=== PATIENT | female | born 1945 | race Caucasian/White ===

== ENCOUNTER 2017-10-15 13:46 | Emergency (ER) | payer MEDICARE, SELFPAY ==
[~2017-10-15] VITALS: Ht 167.6 cm; Wt 147.9 kg
[~2017-10-15 13:46] MED LIST: ALBU90OI6 INH; ALLO100 PO; AMLO10 PO; ASPI81EC PO; ATEN100 PO; AZIT500 PO; Augmentin 875-1 EACH PO; BENZ100A PO; BUME2 PO; CARV25 PO; CEFP200 PO; CHOL10002 PO; CLOP75 PO; CRUTCH USE; Colace100 MG PO; DIPASPER PO; DULERA 200 MCG/13 GM INH; FELO5CR PO; FERR325 PO; FISH1000 PO; GLIP10 PO; IBUP600 PO; INSULANPEN SC; LIDO5TP TOP; LISI20 PO; LOSA50 PO; LOSARTAN POTAS100 MG PO; Norco 5-325 Ta1 EACH PO; OMEP20ER PO; OXYACE5T PO; Omeprazole20 M1 PO; PARI1 PO; PIOG15 PO; PRAV20 PO; PRAV40 PO; PROM25 PO; TRAM50 PO; Ultram50 MG PO
[2017-10-15 14:52] LABS: BASOPHILS ABSOLUTE AUTO 0.06 K/mm3 (0.00-0.23); BASOPHILS PERCENT AUTO 1 % (0-2); EOSINOPHILS ABSOLUTE AUTO 0.32 K/mm3 (0.00-0.68); EOSINOPHILS PERCENT AUTO 4 % (0-6); Hematocrit 37.2 % (33.0-51.0); Hemoglobin 11.8 g/dL (11.5-16.0); IMMATURE GRAN ABSOLUTE AUTO 0.02 K/mm3 (0.00-0.10); IMMATURE GRAN PERCENT AUTO 0 % (0-1); LYMPHOCYTES ABSOLUTE AUTO 1.63 K/mm3 (0.84-5.20); LYMPHOCYTES PERCENT AUTO 20 % (21-46); MONOCYTES ABSOLUTE AUTO 0.57 K/mm3 (0.16-1.47); MONOCYTES PERCENT AUTO 7 % (4-13); Mean Corpuscular HGB 29.1 pg (26.0-34.0); Mean Corpuscular HGB Conc 31.7 g/dL (31.5-36.5); Mean Corpuscular Volume 92 fL (80-100); Mean Platelet Volume 9.4 fL (9.1-12.4); NEUTROPHILS ABSOLUTE AUTO 5.64 K/mm3 (1.96-9.15); NEUTROPHILS PERCENT AUTO 69 % (41-73); Platelet Count 297 K/mm3 (150-400); RDW Coefficient Variation 13.2 % (11.7-14.2); RDW Standard Deviation 44.2 fL (35.1-46.3); Red Blood Cell Count 4.05 M/mm3 (3.80-5.20); White Blood Cell Count 8.24 K/mm3 (4.00-11.30)
[2017-10-15 15:23] LABS: Troponin I <0.015 ng/mL (0.000-0.040)
[2017-10-15 15:26] LABS: Alanine Aminotransfer (ALT/SGP 22 U/L (12-78); Albumin, Blood 3.6 g/dL (3.4-5.0); Albumin/Globulin Ratio 0.9 (0.8-1.8); Alk Phos 80 U/L (50-136); Anion Gap 9 mmol/L (6-16); Aspartate Aminotrans (AST/SGOT 14 U/L (12-37); Bilirubin, Total 0.4 mg/dL (0.1-1.0); Blood Urea Nitrogen 31 mg/dL (8-24); Bun/Creatinine Ratio 23.5 (12.0-20.0); CO2, Blood 25 mmol/L (21-32); Calcium, Blood 9.1 mg/dL (8.5-10.1); Chloride, Blood 106 mmol/L (98-108); Creatinine, Blood 1.32 mg/dL (0.40-1.00); Glomerular Filtration Rate 42 (60-); Glucose, Blood 217 mg/dL (70-99); Potassium, Blood 4.1 mmol/L (3.5-5.5); Sodium, Blood 140 mmol/L (136-145); Total Protein, Blood 7.6 g/dL (6.4-8.2)
[2017-10-15] MEDS ORDERED: INSULANPEN SC (17:12)
[2017-10-15] MEDS ORDERED: CLOP75 PO (17:12)
[2017-10-15 17:13] LABS: U Amphetamine Screen Not Detected; U Barbituate Screen Not Detected; U Benzodiazapine Screen Not Detected; U Buprenorphine Screen Not Detected; U Cannabinoids Screen Not Detected; U Cocaine Screen Not Detected; U Methadone Screen Not Detected; U Methamphetamine Screen Not Detected; U Opiates Screen Not Detected; U Oxycodone Screen Not Detected; U Phencyclidine Screen Not Detected; U Propoxyphene Screen Not Detected
[2017-10-15] MEDS ORDERED: AMLO10 PO (17:13)
[2017-10-15] MEDS ORDERED: BUME2 PO (17:13)
[2017-10-15] MEDS ORDERED: PRAV20 PO (17:14)
[2017-10-15] MEDS ORDERED: Omeprazole20 M1 (17:14)
[2017-10-15] MEDS ORDERED: DOCU100 PO (17:15)
[2017-10-15] MEDS ORDERED: Carvedilol25 MG PO (17:15)
[2017-10-15] MEDS ORDERED: LOSA50 PO (17:15)
[2017-10-15] MEDS ORDERED: GLIP10 PO (17:16)
[2017-10-15] MEDS ORDERED: CHOL10002 (17:17)
[2017-10-15] MEDS ORDERED: FISH OIL 1,2001 EACH PO (17:17)
[2017-10-15] MEDS ORDERED: DIPH50 PO (17:17)
[2017-10-15] MEDS ORDERED: ACET500 (17:18)
[2017-10-15] MEDS ORDERED: Aspirin EC81 MG PO (19:51)
== END 2017-10-15 20:13 | disposition home or self-care (01) ==
LOC: ER 13:46
PROVIDERS: Emergency Medicine
DX: G45.9 Transient cerebral ischemic attack, unspecified (principal); E11.9 Type 2 diabetes mellitus without complications; I10 Essential (primary) hypertension; E66.01 Morbid (severe) obesity due to excess calories; Z79.899 Other long term (current) drug therapy; Z79.4 Long term (current) use of insulin; Z68.43 Body mass index [BMI] 50.0-59.9, adult
CPT/HCPCS: 36415; 51701; 70450; 71045; 80053; 84443; 84484; 85025; 93005; 93010; 93880; 99284

== ENCOUNTER 2018-12-11 19:04 | Emergency (ER) | payer MEDICARE, OTHER ==
[~2018-12-11] VITALS: Ht 167.6 cm; Wt 136.1 kg
[~2018-12-11 19:04] MED LIST changes: +ACET500; +Aspirin EC81 MG PO; +CHOL10002; +Carvedilol25 MG PO; +DIPH50 PO; +DOCU100 PO; +FISH OIL 1,2001 EACH PO
[2018-12-11 20:07] LABS: BASOPHILS ABSOLUTE AUTO 0.08 K/mm3 (0.00-0.23); BASOPHILS PERCENT AUTO 1 % (0-2); EOSINOPHILS ABSOLUTE AUTO 0.46 K/mm3 (0.00-0.68); EOSINOPHILS PERCENT AUTO 5 % (0-6); Hematocrit 38.9 % (33.0-51.0); Hemoglobin 12.5 g/dL (11.5-16.0); IMMATURE GRAN ABSOLUTE AUTO 0.04 K/mm3 (0.00-0.10); IMMATURE GRAN PERCENT AUTO 0 % (0-1); LYMPHOCYTES PERCENT AUTO 16 % (21-46); MONOCYTES ABSOLUTE AUTO 0.77 K/mm3 (0.16-1.47); MONOCYTES PERCENT AUTO 8 % (4-13); Mean Corpuscular HGB Conc 32.1 g/dL (31.5-36.5); Mean Corpuscular Volume 90 fL (80-100); Mean Platelet Volume 9.6 fL (9.1-12.4); NEUTROPHILS ABSOLUTE AUTO 6.42 K/mm3 (1.96-9.15); NEUTROPHILS PERCENT AUTO 69 % (41-73); Platelet Count 322 K/mm3 (150-400); RDW Coefficient Variation 13.6 % (11.7-14.2); Red Blood Cell Count 4.31 M/mm3 (3.80-5.20); White Blood Cell Count 9.27 K/mm3 (4.00-11.30)
[2018-12-11 20:25] LABS: Alanine Aminotransfer (ALT/SGP 26 U/L (12-78); Albumin, Blood 3.9 g/dL (3.4-5.0); Alk Phos 106 U/L (50-136); Anion Gap 9 mmol/L (6-16); Aspartate Aminotrans (AST/SGOT 25 U/L (12-37); Bilirubin, Total 0.5 mg/dL (0.1-1.0); Blood Urea Nitrogen 25 mg/dL (8-24); Bun/Creatinine Ratio 18.1 (12.0-20.0); CO2, Blood 28 mmol/L (21-32); Calcium, Blood 9.5 mg/dL (8.5-10.1); Chloride, Blood 97 mmol/L (98-108); Creatinine, Blood 1.38 mg/dL (0.40-1.00); Glomerular Filtration Rate 40 (60-); Glucose, Blood 180 mg/dL (70-99); Potassium, Blood 4.1 mmol/L (3.5-5.5); Sodium, Blood 134 mmol/L (136-145); Total Protein, Blood 7.9 g/dL (6.4-8.2); Troponin I <0.015 ng/mL (0.000-0.040)
[2018-12-11] MEDS ORDERED: GLIP10 PO (21:56)
[2018-12-11] MEDS ORDERED: Prednisone20 MG PO (22:23)
[2018-12-11] MEDS ORDERED: BENZ100A PO (22:23)
== END 2018-12-11 23:14 | disposition home or self-care (01) ==
LOC: ER 19:04
PROVIDERS: Physician Assistant
DX: J40 Bronchitis, not specified as acute or chronic (principal); E66.2 Morbid (severe) obesity with alveolar hypoventilation; Z68.42 Body mass index [BMI] 45.0-49.9, adult; Z79.899 Other long term (current) drug therapy; Z79.4 Long term (current) use of insulin; Z79.82 Long term (current) use of aspirin; E11.9 Type 2 diabetes mellitus without complications; I10 Essential (primary) hypertension; Z86.73 Personal history of transient ischemic attack (TIA), and cerebral infarction without residual deficits
CPT/HCPCS: 36415; 71046; 80053; 83880; 84484; 85025; 93005; 93010; 94640; 99284-25; J7512

== ENCOUNTER → 2020-02-14 | Outpatient (CLI) | payer MEDICARE, OTHER ==
[~2020-02-14] MED LIST changes: +ALLOPURINOL100 M1 PO; +AMLODIPINE BESY10 MG PO; +BASAGLAR K100 UNIT/1 SC; +Bumetanide2 MG PO; +CARV6.25 PO; +GLUCOTROL10 MG PO; +HUMALOG KW100 UNIT/1 SC; +PRED20 PO; +Prednisone20 MG PO; +Tessalon Perle100 MG PO; +VISBIOME PROBIOTIC PO
[2020-02-14 14:53] LABS: Appearance, Urine Hazy (Clear); Bilirubin, Urine Neg (Neg); Blood, Urine Neg (Neg); Color, Urine Yellow (P-Yellow); Glucose Qualitative, Urine Neg (Neg); Ketones, Urine Neg (Neg); Leukocyte Esterase, Urine 1+ (Neg); Nitrite, Urine Neg (Neg); Protein, Urine 1+ (Neg); Specific Gravity, Urine 1.015 (1.003-1.022); Urobilinogen, Urine NORM (Normal)
[2020-02-14 15:04] LABS: Bacteria Mod /hpf; Red Blood Cells, Urine 0-2 /hpf (0-2); Squamous Epithelial Cells Many /hpf (Few)
[2020-02-14 15:08] LABS: Yeast/Fungi Urine Few /hpf
== END | disposition home or self-care (01) ==
LOC: LAB 09:01 → LAB SHORT 09:01
PROVIDERS: Nurse Practitioner Family
DX: R05 Cough (principal); R06.00 Dyspnea, unspecified; R68.83 Chills (without fever)
CPT/HCPCS: 81001; 87086

== ENCOUNTER 2021-07-05 02:03 | Inpatient (IN) | payer MEDICARE ==
[~2021-07-05] VITALS: Ht 172.7 cm; Wt 133.5 kg
[2021-07-05 04:13] LABS: BASOPHILS ABSOLUTE AUTO 0.08 K/mm3 (0.00-0.23); BASOPHILS PERCENT AUTO 1 % (0-2); EOSINOPHILS ABSOLUTE AUTO 0.28 K/mm3 (0.00-0.68); EOSINOPHILS PERCENT AUTO 2 % (0-6); Hematocrit 38.1 % (33.0-51.0); Hemoglobin 12.4 g/dL (11.5-16.0); IMMATURE GRAN ABSOLUTE AUTO 0.04 K/mm3 (0.00-0.10); IMMATURE GRAN PERCENT AUTO 0 % (0-1); LYMPHOCYTES ABSOLUTE AUTO 1.68 K/mm3 (0.84-5.20); LYMPHOCYTES PERCENT AUTO 13 % (21-46); MONOCYTES ABSOLUTE AUTO 0.65 K/mm3 (0.16-1.47); MONOCYTES PERCENT AUTO 5 % (4-13); Mean Corpuscular HGB Conc 32.5 g/dL (31.5-36.5); Mean Corpuscular Volume 92 fL (80-100); Mean Platelet Volume 9.5 fL (9.1-12.4); NEUTROPHILS ABSOLUTE AUTO 9.96 K/mm3 (1.96-9.15); NEUTROPHILS PERCENT AUTO 79 % (41-73); Platelet Count 335 K/mm3 (150-400); RDW Coefficient Variation 13.9 % (11.7-14.2); RDW Standard Deviation 47.3 fL (35.1-46.3); Red Blood Cell Count 4.14 M/mm3 (3.80-5.20); White Blood Cell Count 12.69 K/mm3 (4.00-11.30)
[2021-07-05 04:35] LABS: Albumin, Blood 3.6 g/dL (3.4-5.0); Albumin/Globulin Ratio 0.9 (0.8-1.8); Bilirubin, Total 0.4 mg/dL (0.1-1.0); Bun/Creatinine Ratio 19.6 (12.0-20.0); Calcium, Blood 8.4 mg/dL (8.5-10.1); Creatinine, Blood 1.38 mg/dL (0.40-1.00); Potassium, Blood 3.8 mmol/L (3.5-5.5); Total Protein, Blood 7.6 g/dL (6.4-8.2); Troponin I 0.029 ng/mL (0.000-0.040)
[2021-07-05 07:50] LABS: Influenza A, PCR NEGATIVE (NEGATIVE); Influenza B, PCR NEGATIVE (NEGATIVE); Resp Syncytial Virus, PCR NEGATIVE (NEGATIVE); SARS-Cov-2 (COVID-19) PCR, MMC NEGATIVE (NEGATIVE)
--- NOTE | 2021-07-05 10:30 | NUR ---
PT ARRIVED TO UNIT VIA GURNEY, WAS ABLE TO TRANSFER SELF TO BED WITH USE OF CANE WITHOUT ASSISTANCE, VSS. PT WAS ABLE TO PROVIDE ADMIT INFORMATION REGARDING MEDICATIONS AND DOSAGES. PT AND PT'S DAUGHTER WERE ORIENTED TO ROOM, QUESTIONS ANSWERED TO SATISFACTION. PT DENIED PAIN/DISCOMFORT, REPOSITIONED SELF IN BED. PT WAS ABLE TO AMBULATE TO BATHROOM WITH STANDBY ASSIST FOR MANAGEMENT OF OXYGEN TUBING. PT'S DAUGHTER WAS INFORMED OF HOPSITAL VISITOR POLICY AND THAT SHE WAS WELCOME TO STAY DURING THE PT'S ADMIT AND THEN COULD RETURN DURING VISITING HOURS STARTING AT 2PM. PT'S DAUGHTER STATED SHE NEEDED TO "TALK TO SOMEONE IN CHARGE TO GIVE HER AN EXCEPTION." THIS RN COMMUNICATED THAT SHE COULD SPEAK WITH THE CHARGE NURSE CONSTANCE, AND SUBSEQUENTLY THE ADVANCED MANUFACTURING CONSULTANT WALDO TERRY, BOTH SPOKE WITH THE PATIENT AND HER DAUGHTER AT BEDSIDE.
--- NOTE | 2021-07-05 11:00 | NUR ---
Patient is alert and oriented at this time. Patients daughter states she is the post acute care registered nurse and reciting the [place] disabl[place] allowing her to stay with patient. At this time daughter allowed to stay.
[2021-07-05] MEDS ORDERED: BASAGLAR K100 UNIT/1 SC (13:51)
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
--- NOTE | 2021-07-05 18:41 | NUR ---
SHIFT SUMMARY NO ACUTE EVENTS SINCE ARRIVAL TO UNIT, VSS. PT UP TO BATHROOM WITH CANE, TOLERATED WELL AND ABLE TO VOID. PT CHANGED TO CLEAR LIQUID DIET PER DR. KURTZ WHO WAS AT BEDSIDE SEVERAL TIMES THIS SHIFT, PT TOLERATED WELL. PT HAS DENIED NAUSEA SINCE ARRIVAL TO UNIT. PT COMPLAINED OF 2/10 PAIN IN R. SIDE OF ABDOMEN, MEDICATED PER EMAR. PER DR. KURTZ PLAN IS FOR HYDRASCAN TOMORROW MORNING. PT ON ROOM AIR AFTER TRIAL OFF 2 L NASAL CANNULA, O2 SATURATION MAINTING >95% ON ROOM AIR.
[2021-07-06 05:03] LABS: BASOPHILS ABSOLUTE AUTO 0.05 K/mm3 (0.00-0.23); BASOPHILS PERCENT AUTO 0 % (0-2); EOSINOPHILS ABSOLUTE AUTO 0.05 K/mm3 (0.00-0.68); EOSINOPHILS PERCENT AUTO 0 % (0-6); Hematocrit 35.4 % (33.0-51.0); Hemoglobin 11.3 g/dL (11.5-16.0); IMMATURE GRAN ABSOLUTE AUTO 0.08 K/mm3 (0.00-0.10); IMMATURE GRAN PERCENT AUTO 1 % (0-1); LYMPHOCYTES ABSOLUTE AUTO 1.42 K/mm3 (0.84-5.20); LYMPHOCYTES PERCENT AUTO 9 % (21-46); MONOCYTES ABSOLUTE AUTO 1.15 K/mm3 (0.16-1.47); MONOCYTES PERCENT AUTO 7 % (4-13); Mean Corpuscular HGB Conc 31.9 g/dL (31.5-36.5); Mean Corpuscular Volume 94 fL (80-100); Mean Platelet Volume 9.3 fL (9.1-12.4); NEUTROPHILS ABSOLUTE AUTO 13.52 K/mm3 (1.96-9.15); NEUTROPHILS PERCENT AUTO 83 % (41-73); Platelet Count 253 K/mm3 (150-400); RDW Coefficient Variation 13.9 % (11.7-14.2); RDW Standard Deviation 47.9 fL (35.1-46.3); Red Blood Cell Count 3.77 M/mm3 (3.80-5.20); White Blood Cell Count 16.27 K/mm3 (4.00-11.30)
--- NOTE | 2021-07-06 05:32 | NUR ---
SHIFT SUMMARY NO ACUTE CHANGES OVERNIGHT. PT REPORTS MINIMAL ABD PAIN, 2/10 PAIN LEVEL ON RIGHT QUADRANT REGION. PT TOLERATING CLEAR LIQ DIET LAST NIGHT, NPO AFTER MIDNIGHT. DENIES NAUSEA AND VOMITING. BT PRESENT. AMBULATING IN BATHROOM WITH CANE, SBA WITH DAUGHTER HER GARDEN CENTER MANAGER IN ROOM. PAIN MANAGED WITH COURTNEY 5MG. NORCO STOPPED BEFORE 2AM FOR SCHEDULED HIDA SCAN THIS MORNING. PT AOX4. PLEASANT. VSS. CALL LIGHT WITHIN REACH. WILL PROVIDE REPORT TO ONCOMING NURSE.
[2021-07-06 05:55] LABS: Albumin/Globulin Ratio 0.9 (0.8-1.8); Bilirubin, Total 0.7 mg/dL (0.1-1.0); Bun/Creatinine Ratio 16.5 (12.0-20.0); Calcium, Blood 7.9 mg/dL (8.5-10.1); Creatinine, Blood 1.39 mg/dL (0.40-1.00); Globulin, Blood 3.3 g/dL (2.2-4.0); Potassium, Blood 3.8 mmol/L (3.5-5.5); Total Protein, Blood 6.3 g/dL (6.4-8.2)
--- NOTE | 2021-07-06 15:40 | NUR ---
07/06/21 1540 Jamee Bingham SMALL SKIN TEAR NOTED ON LEFT ARM NEAR BLOOD PRESSURE CUFF POST OPERATIVELY.
--- NOTE | 2021-07-06 17:49 | NUR ---
PATIENT CURRENTLY RESTING WITH EYES CLOSED, AWAKENS EASILY TO VERBAL STIMULI. PATIENT RETURNED FROM PACU AT 1645 TODAY. LAP SITES X 5 TO ABDOMEN. CICI DRAIN TO RLQ WITH SEROSANG DRAINAGE NOTED. NO SIGNS OR SYMPTOMS ACUTE DISTRESS NOTED. CALL LIGHT AND WATER IN EASY REACH. ABLE TO MAKE NEEDS AND WANTS KNOWN. PATIENTS SON IS TO BRING HER CPAP IN FOR HER TONIGHT. DAUGHTER IS AT BEDSIDE. PATIENT HAS NO COMPLAINTS OF PAIN/NAUSEA. BOWEL SOUNDS HYPOACTIVE. WILL MONITOR.
--- NOTE | 2021-07-07 05:00 | NUR ---
SUMMARY PT HAD NO ISSUES. PT DENIED ANY DISCOMFORT. PT PT ABD DRESSING C/D/I. PT HAD DIFFICULTY MAINTAINING SPO2 ON CPAP W/ BLEED IN. PT WAS PLACED ON NC @ 5 LPM WHILE SLEEPING. PT RESPONDED WELL AND MAINTAINED SPO2 >92%. PT VOIDED IN BATHROOM DURING THE NIGHT. PT HAS BEEN SLEEPING WELL W/OUT COMPLAINT. PT CURRENTLY SLEEPING AND IN NO DISTRESS. CALL LIGHT IN REACH.
--- NOTE | 2021-07-07 12:35 | NUR ---
Advance Directive education attempted. I inquire of patient as to her level of interest in discussing medical decision making, appointing a health care insurance follow up representative, adjusting her code status or filling out an ACP instrument. Patient declined having any interest in these types of conversations at this time but did receive an Advance Directive booklet from me which she states that she will read when she feels better. I will remain available to answer questions regarding the ACP.
--- NOTE | 2021-07-07 17:38 | NUR ---
PATIENT CURRENTLY SITTIN EOB EATING DINNER. NO SIGNS OR SYMPTOMS ACUTE DISTRESS NOTED. CALL LIGHT AND WATER IN EASY REACH, ABLE TO MAKE NEEDS AND WANTS KNOWN. DAUGHTER AT BEDSIDE AND HELPS PATIENT TO AND FROM THE BATHROOM. PATIENT USES WALKER. PATIENT EDUCATED ON USE OF IS EVERY HOUR WHILE AWAKE. MEDICATIONS CHANGES MADE BY DR TRAYLOR. PATIENT MEDICATED FOR RLQ PAIN TODAY PER ORDERS SEE EMAR. O2 WEANED DOWN TO 2L PER NC TODAY. PATIENT DOES NOT WEAR 02 AT HOME. COUGH NOTED THAT IS PRODUCTIVE. MD AWARE. WILL CONTINUE TO MONITOR.
--- NOTE | 2021-07-07 22:12 | NUR ---
2049 HS CBG WAS OBTAINED WITH 419, NO COVERAGE ORDERED FOR HS. CALLED DR. MEYER, NOTIFIED THAT PT HAS BEEN TAKING 40UNITS OF LONG ACTING INSULIN AT HOME IN THE MORNING. AND LSS SHORT ACTING BEFORE MEALS. DR. MEYER ORDERED 20UNITS LONG ACTING X1 TO BE GIVEN NOW AND RESUME PT'S HOME MED OF 40UNITS OF LONG ACTING IN THE MORNING AND CONTINUE SLIDING SCALE ON EMR. PT NOTIFIED, SON ON BEDSIDE. AGREED ON THIS PLAN. WILL CONTINUE TO MONITOR PT. PT PROVIDED DIABETIC DIET EDUCATION. PT HAS BEEN RECEPTIVE. CALL LIGHT WITHIN REACH.
[2021-07-08 05:24] LABS: BASOPHILS ABSOLUTE AUTO 0.02 K/mm3 (0.00-0.23); BASOPHILS PERCENT AUTO 0 % (0-2); EOSINOPHILS ABSOLUTE AUTO 0.01 K/mm3 (0.00-0.68); EOSINOPHILS PERCENT AUTO 0 % (0-6); Hematocrit 34.5 % (33.0-51.0); Hemoglobin 10.7 g/dL (11.5-16.0); IMMATURE GRAN ABSOLUTE AUTO 0.17 K/mm3 (0.00-0.10); IMMATURE GRAN PERCENT AUTO 2 % (0-1); LYMPHOCYTES ABSOLUTE AUTO 0.92 K/mm3 (0.84-5.20); LYMPHOCYTES PERCENT AUTO 8 % (21-46); MONOCYTES ABSOLUTE AUTO 0.71 K/mm3 (0.16-1.47); MONOCYTES PERCENT AUTO 6 % (4-13); Mean Corpuscular HGB 29.4 pg (26.0-34.0); Mean Corpuscular Volume 95 fL (80-100); Mean Platelet Volume 9.7 fL (9.1-12.4); NEUTROPHILS ABSOLUTE AUTO 9.74 K/mm3 (1.96-9.15); NEUTROPHILS PERCENT AUTO 84 % (41-73); Platelet Count 244 K/mm3 (150-400); RDW Coefficient Variation 13.8 % (11.7-14.2); RDW Standard Deviation 48.5 fL (35.1-46.3); Red Blood Cell Count 3.64 M/mm3 (3.80-5.20); White Blood Cell Count 11.57 K/mm3 (4.00-11.30)
--- NOTE | 2021-07-08 05:56 | NUR ---
SHIFT SUMMARY POD2 LAP LOUISE WITH 5 ABD LAP SITE REMAIN CDI OVERNIGHT. PT REPORTS MOD PAIN, PAIN MANAGED WITH TYLENOL AND OXY. PT AMBULATES WITH FWW TO BRP. VOIDING ADEQUATELY, SON AT BEDSIDE PROVIDING ASSISTANCE. VSS. PT WEARS CPAP AT NIGHT AT HOME BUT PREFERS TO USE 2L N/C OVERNIGHT BECAUSE CPAP MACHINE NOT PROVIDING ADEQUATE OXYGENATION AT SLEEP. PT REMAIN TO HAVE COUGH, NON PRODUCTIVE. ANTICIPATING CHEST XRAY TODAY. VSS. DENIES CHEST PAIN AND SOB. TOLERATING PO INTAKE DENIES NAUSEA AND VOMITING. BT PRESENT. PASSING FLATUS. IV ABX GIVEN. SALINE LOCKED. CBG AT 419, HS. CALLED DR. MEYER, UPDATED INSULIN ORDERS, SEE PREVIOUS NOTE AND EMR. CALL LIGHT WITHIN REACH. WILL PROVIDE REPORT TO ONCOMING NURSE.
--- NOTE | 2021-07-08 06:20 | NUR ---
[place] FROM [facility] CALLED, PT TO BE PICKED UP IN ABOUT 15 MINS FOR CHEST XRAY.
[2021-07-08 06:26] LABS: Albumin, Blood 2.3 g/dL (3.4-5.0); Anion Gap 11 mmol/L (6-16); Blood Urea Nitrogen 44 mg/dL (8-24); Bun/Creatinine Ratio 25.1 (12.0-20.0); CO2, Blood 25 mmol/L (21-32); Calcium, Blood 7.4 mg/dL (8.5-10.1); Chloride, Blood 99 mmol/L (98-108); Creatinine, Blood 1.75 mg/dL (0.40-1.00); Glomerular Filtration Rate 28 (60-); Glucose, Blood 308 mg/dL (70-99); Phosphorus, Blood 2.7 mg/dL (2.5-4.9); Potassium, Blood 4.3 mmol/L (3.5-5.5); Sodium, Blood 135 mmol/L (136-145)
[2021-07-09 05:18] LABS: Calcium, Blood 7.7 mg/dL (8.5-10.1); Creatinine, Blood 1.92 mg/dL (0.40-1.00)
--- NOTE | 2021-07-09 05:43 | NUR ---
ALERT AND ORIENTED X'S 4. DENIES PAIN OR DISCOMFORT. 02@1.5L VIA N/C, RESPIRATIONS EVEN AND UNLABORED, CONTINUOUS PULSE OX IN PLACE. PRODUCTIVE COUGH, CLEAR SPUTUM NOTED. STERI STRIPS TO ABDOMINAL LAP SITES INTACT, CELINA. CICI DRAINED 40ML OF SANGUINOUS FLUID, DRESSING INTACT. SAFETY MAINTAINED, CALL HERMOSILLO IN REACH.
[2021-07-09 06:36] LABS: BASOPHILS ABSOLUTE AUTO 0.07 K/mm3 (0.00-0.23); BASOPHILS PERCENT AUTO 1 % (0-2); EOSINOPHILS ABSOLUTE AUTO 0.37 K/mm3 (0.00-0.68); EOSINOPHILS PERCENT AUTO 4 % (0-6); Hematocrit 33.9 % (33.0-51.0); Hemoglobin 10.7 g/dL (11.5-16.0); IMMATURE GRAN ABSOLUTE AUTO 0.34 K/mm3 (0.00-0.10); IMMATURE GRAN PERCENT AUTO 4 % (0-1); LYMPHOCYTES ABSOLUTE AUTO 2.17 K/mm3 (0.84-5.20); LYMPHOCYTES PERCENT AUTO 22 % (21-46); MONOCYTES ABSOLUTE AUTO 0.85 K/mm3 (0.16-1.47); MONOCYTES PERCENT AUTO 9 % (4-13); Mean Corpuscular HGB 29.6 pg (26.0-34.0); Mean Corpuscular HGB Conc 31.6 g/dL (31.5-36.5); Mean Corpuscular Volume 94 fL (80-100); Mean Platelet Volume 9.3 fL (9.1-12.4); NEUTROPHILS ABSOLUTE AUTO 5.96 K/mm3 (1.96-9.15); NEUTROPHILS PERCENT AUTO 61 % (41-73); Platelet Count 256 K/mm3 (150-400); RDW Coefficient Variation 14.1 % (11.7-14.2); RDW Standard Deviation 48.1 fL (35.1-46.3); Red Blood Cell Count 3.62 M/mm3 (3.80-5.20); White Blood Cell Count 9.76 K/mm3 (4.00-11.30)
[2021-07-09 08:15] LABS: Appearance, Urine Clear (Clear); Bilirubin, Urine Neg (Neg); Blood, Urine Neg (Neg); Color, Urine Yellow (P-Yellow); Glucose Qualitative, Urine 3+ (Neg); Ketones, Urine Neg (Neg); Leukocyte Esterase, Urine Neg (Neg); Nitrite, Urine Neg (Neg); Protein, Urine 1+ (Neg); Urobilinogen, Urine NORM (Normal)
--- NOTE | 2021-07-09 18:14 | NUR ---
PATIENT CURRENTLY UP IN CHAIR EATING HER MEAL. NO SIGNS OR SYMPTOMS ACUTE DISTRESS NOTED. CALL LIGHT AND WATER IN EASY REACH. ABLE TO MAKE NEEDS AND WANTS KNOWN. CONSULT FOR PLACED TODAY, NOTIFIED HIM OF CONSULT. DR KURTZ SAW PATIENT THIS MORNING AND DC'D ANTIBIOTICS. DRESSING CHANGED TO CICI DRAIN SITE. CICI WITH SEROSANG DRAINAGE NOTED. PATIENT UP TO BATHROOM WITH WALKER, SBA ONLY. PATIENT HAS BEEN ON ROOM AIR ALL DAY AND HAS BEEN UP IN CHAIR FOR ALL MEALS. CURRENTLY WITH IVF RUNNING. PATIENT ENCOURAGED TO COUGH AND DEEP BREATH AND USE IS EVERY HOUR WHILE AWAKE. WILL MONITOR.
--- NOTE | 2021-07-10 04:43 | NUR ---
SHIFT SUMMARY PT IS POD#3 FROM LAP LOUISE WITH DR. KURTZ. A&0 X4. [place] ROBB AT BEDSIDE DURING THE EVENING. PT CAN AMBULATE INDEPENDENTLY WITH SBA FOR SAFETY TO BR. 5 LAP SITES SECURED WITH STERISTRIPS. INCISIONS ARE C/D/I, NO EVIDENCE OF DRAINAGE OR REDNESS. CICI IN PLACE TO RLQ, DRAINING SCANT SEROSANGUINOUS FLUID. PT VOIDED TWICE DURING THE SHIFT. ROOM AIR. HX OF [place], DECLINED TO WEAR CPAP DURING SLEEP. MAINTAINED OXYGEN SATURATIONS OF 91-92% DURING THE NIGHT MONITORED VIA CONTINUOUS PULSE OX. 5 VSS, NO ACUTE CHANGES.
[2021-07-10 05:15] LABS: Hematocrit 35.2 % (33.0-51.0); Hemoglobin 10.9 g/dL (11.5-16.0)
[2021-07-10 05:40] LABS: Albumin, Blood 2.5 g/dL (3.4-5.0); Anion Gap 6 mmol/L (6-16); Blood Urea Nitrogen 39 mg/dL (8-24); CO2, Blood 28 mmol/L (21-32); Chloride, Blood 107 mmol/L (98-108); Glomerular Filtration Rate 34 (60-); Glucose, Blood 146 mg/dL (70-99); Magnesium, Blood 2.1 mg/dL (1.6-2.4); Phosphorus, Blood 2.2 mg/dL (2.5-4.9); Potassium, Blood 3.9 mmol/L (3.5-5.5); Sodium, Blood 141 mmol/L (136-145)
[2021-07-10] MEDS ORDERED: Colace100 MG PO (11:19)
[2021-07-10] MEDS ORDERED: SENN187 PO (11:20)
--- NOTE | 2021-07-10 13:35 | NUR ---
DISCHARGE: DISCHARGE INSTUCTIONS GIVEN TO PATIENT AND GRANDAUGHTER AT THIS TIME. PATIENT VERBALIZED UNDERSTANDING OF INSTUCTIONS. NO SIGNS OR SYMPOTMS ACUTE DISTRESS NOTED. PRESCRITIONS GIVEN TO PATIENT. PATIENT LEFT WITH GRANDDAUGHTER VIA WHEELCHAIR AND PERSONAL VEHICLE.
== END 2021-07-10 13:37 | disposition home health service (06) | DRG 418 ==
LOC: ER 02:03 → ERHOLD 02:04 → SURS 02:04
PROVIDERS: Emergency Medicine; Internal Medicine; Internal Medicine Nephrology; Surgery; ADMIT Internal Medicine
PROC: 3E02340 Introduction of Influenza Vaccine into Muscle, Percutaneous Approach (ICD-10-PCS; 2021-07-05)
PROC: 0FT44ZZ Resection of Gallbladder, Percutaneous Endoscopic Approach (ICD-10-PCS; principal; 2021-07-06 12:45)
DX: K80.00 Calculus of gallbladder with acute cholecystitis without obstruction (principal); E66.2 Morbid (severe) obesity with alveolar hypoventilation; I50.32 Chronic diastolic (congestive) heart failure; N17.9 Acute kidney failure, unspecified; Z68.42 Body mass index [BMI] 45.0-49.9, adult; I13.0 Hypertensive heart and chronic kidney disease with heart failure and stage 1 through stage 4 chronic kidney disease, or unspecified chronic kidney disease; N25.81 Secondary hyperparathyroidism of renal origin; E87.1 Hypo-osmolality and hyponatremia; Z20.822 Contact with and (suspected) exposure to COVID-19; K82.A1 Gangrene of gallbladder in cholecystitis; R09.02 Hypoxemia; Z23 Encounter for immunization; E83.39 Other disorders of phosphorus metabolism; N18.30 Chronic kidney disease, stage 3 unspecified; E86.9 Volume depletion, unspecified; D63.1 Anemia in chronic kidney disease; E11.22 Type 2 diabetes mellitus with diabetic chronic kidney disease; M10.9 Gout, unspecified; Z86.73 Personal history of transient ischemic attack (TIA), and cerebral infarction without residual deficits; Z98.51 Tubal ligation status; Z79.02 Long term (current) use of antithrombotics/antiplatelets; Z79.899 Other long term (current) drug therapy; Z79.4 Long term (current) use of insulin; Z79.82 Long term (current) use of aspirin; Z79.52 Long term (current) use of systemic steroids
CPT/HCPCS: 0241U; 36415; 71045; 71046; 74176; 76770; 78226; 80048; 80053; 80069; 82947; 83690; 83735; 83880; 84484; 85014; 85018; 85025; 88304; 90686; 93005; 93010; 94762; 96365; 96375; 96376; 97110; 97162; 99285-25; A9270; A9537; G0008; G0378; J0694; J1100; J1170; J1650; J1815; J2250; J2370; J2405; J2704; J3010; J7030; J7050; J7060; J7120

== ENCOUNTER 2022-10-14 17:09 | Inpatient (IN) | payer MEDICARE ==
[~2022-10-14] VITALS: Ht 165.1 cm; Wt 126.9 kg
[~2022-10-14 17:09] MED LIST changes: +SENN187 PO
[2022-10-14 17:41] LABS: BASOPHILS ABSOLUTE AUTO 0.06 K/mm3 (0.00-0.23); BASOPHILS PERCENT AUTO 1 % (0-2); EOSINOPHILS ABSOLUTE AUTO 0.21 K/mm3 (0.00-0.68); EOSINOPHILS PERCENT AUTO 3 % (0-6); Hematocrit 37.5 % (33.0-51.0); Hemoglobin 11.2 g/dL (11.5-16.0); IMMATURE GRAN ABSOLUTE AUTO 0.04 K/mm3 (0.00-0.10); IMMATURE GRAN PERCENT AUTO 1 % (0-1); LYMPHOCYTES ABSOLUTE AUTO 1.67 K/mm3 (0.84-5.20); LYMPHOCYTES PERCENT AUTO 21 % (21-46); MONOCYTES ABSOLUTE AUTO 0.58 K/mm3 (0.16-1.47); MONOCYTES PERCENT AUTO 7 % (4-13); Mean Corpuscular HGB 29.2 pg (26.0-34.0); Mean Corpuscular HGB Conc 29.9 g/dL (31.5-36.5); Mean Corpuscular Volume 98 fL (80-100); Mean Platelet Volume 9.2 fL (9.1-12.4); NEUTROPHILS ABSOLUTE AUTO 5.42 K/mm3 (1.96-9.15); NEUTROPHILS PERCENT AUTO 68 % (41-73); Platelet Count 243 K/mm3 (150-400); RDW Coefficient Variation 14.2 % (11.7-14.2); RDW Standard Deviation 51.1 fL (35.1-46.3); Red Blood Cell Count 3.83 M/mm3 (3.80-5.20); White Blood Cell Count 7.98 K/mm3 (4.00-11.30)
[2022-10-14 18:06] LABS: Alanine Aminotransfer (ALT/SGP 20 U/L (12-78); Albumin, Blood 3.3 g/dL (3.4-5.0); Alk Phos 82 U/L (50-136); Anion Gap Unable to Calculate mmol/L (6-16); Aspartate Aminotrans (AST/SGOT 15 U/L (12-37); Bilirubin, Total 0.3 mg/dL (0.1-1.0); Blood Urea Nitrogen 28 mg/dL (8-24); Bun/Creatinine Ratio 21.4 (12.0-20.0); CO2, Blood 32 mmol/L (21-32); Chloride, Blood 110 mmol/L (98-108); Creatinine, Blood 1.31 mg/dL (0.40-1.00); Globulin, Blood 3.3 g/dL (2.2-4.0); Glomerular Filtration Rate 42 (60-); Glucose, Blood 184 mg/dL (70-99); Potassium, Blood 4.8 mmol/L (3.5-5.5); Sodium, Blood 140 mmol/L (136-145); Total Protein, Blood 6.6 g/dL (6.4-8.2)
[2022-10-14 19:25] LABS: Influenza A, PCR NEGATIVE (NEGATIVE); Influenza B, PCR NEGATIVE (NEGATIVE); Resp Syncytial Virus, PCR NEGATIVE (NEGATIVE); SARS-Cov-2 (COVID-19) PCR, MMC NEGATIVE (NEGATIVE)
[2022-10-14 22:25] VITALS: BP 174/87
[2022-10-14 22:30] VITALS: BP 172/82
[2022-10-14 22:45] VITALS: BP 166/84
[2022-10-15 05:51] VITALS: BP 149/73
[2022-10-15 06:10] LABS: Hematocrit 37.1 % (33.0-51.0); Hemoglobin 11.2 g/dL (11.5-16.0); Mean Corpuscular HGB 29.5 pg (26.0-34.0); Mean Corpuscular HGB Conc 30.2 g/dL (31.5-36.5); Mean Corpuscular Volume 98 fL (80-100); Mean Platelet Volume 9.8 fL (9.1-12.4); Platelet Count 224 K/mm3 (150-400); RDW Coefficient Variation 14.1 % (11.7-14.2); RDW Standard Deviation 50.1 fL (35.1-46.3); White Blood Cell Count 7.44 K/mm3 (4.00-11.30)
[2022-10-15 06:49] LABS: Bun/Creatinine Ratio 22.2 (12.0-20.0); Calcium, Blood 9.1 mg/dL (8.5-10.1); Creatinine, Blood 1.26 mg/dL (0.40-1.00); Magnesium, Blood 1.9 mg/dL (1.6-2.4); Potassium, Blood 4.4 mmol/L (3.5-5.5)
[2022-10-15 08:16] VITALS: BP 141/73
[2022-10-15 12:10] VITALS: BP 144/80
[2022-10-15 15:13] VITALS: BP 160/75
--- NOTE | 2022-10-15 17:56 | NUR ---
TRANSFER TO 209 PATIENT TRANSFERRED TO ROOM 209 AT APPROXIMATTELY 1400, ASSUMED CARE AT THAT TIME, PT BROUGHT OVER VIA WITHA ALL PERSONAL POSSESSIONS, ABLE TO TRANSFER SELF TO HER BED, ON 2L NC AT THAT TIME AND STILL CURRENTLY. REPORTS NO NEEDS AT THIS TIME. WILL CTM
[2022-10-15 19:32] VITALS: BP 167/83
[2022-10-16 03:26] VITALS: BP 154/78
--- NOTE | 2022-10-16 06:32 | NUR ---
PT HAD UNEVENTFUL NIGHT. HR SINUS 70-80'S PER TELE MONITOR, PT DENIES CP/PRESSURE. SATS >90% ON 2LO2 NC, CPAP W/4-6L O2 BLEED IN WHILE SLEEPING. SEVERAL EPISODES (APNEIC?) WHERE SATS DROPPED TO MID 70'S WHILE SLEEPING W/CPAP AND 4LO2 BLED IN, O2 INCREASED TO 6L WHEN SLEEPING SOUNDLY, DECREASED TO 4L THIS AM. PT REP FEELING LESS SOB, AMB TO BATHROOM W/FWW+SBA. PT HAD >2000 ML UO THIS SHIFT. PT USING CALL LIGHT FOR ASSISTANCE. PLAN TO CONT TO TITRATE O2 PT SOBIA AND AWAIT DC PLANNING.
[2022-10-16 07:02] VITALS: BP 152/65
[2022-10-16 07:14] LABS: Hematocrit 37.7 % (33.0-51.0); Hemoglobin 11.7 g/dL (11.5-16.0); Mean Corpuscular Volume 94 fL (80-100); Mean Platelet Volume 9.4 fL (9.1-12.4); Platelet Count 207 K/mm3 (150-400); Red Blood Cell Count 4.03 M/mm3 (3.80-5.20); White Blood Cell Count 7.67 K/mm3 (4.00-11.30)
[2022-10-16 07:32] LABS: Albumin, Blood 3.4 g/dL (3.4-5.0); Albumin/Globulin Ratio 0.9 (0.8-1.8); Bilirubin, Total 0.6 mg/dL (0.1-1.0); Calcium, Blood 9.3 mg/dL (8.5-10.1); Creatinine, Blood 1.35 mg/dL (0.40-1.00); Globulin, Blood 3.6 g/dL (2.2-4.0)
--- NOTE | 2022-10-16 09:28 | NUR ---
AT BEDSIDE WITH PT DISCUSSING MEDICATION CHANGES
--- NOTE | 2022-10-16 10:42 | NUR ---
Pt resting in bed upon arrival. Pt appears apprehensive throughout visit. Pt denies pain, dyspnea, anxiety, and nausea. Brief review of plan of care. Gentle but brief discussion regarding advanced directives as Pt remains apprehensive of visit. Discussed considering completing AD and having discussions with family regarding wishes. Discussed the importance of appointing a healthcare representative personal service. Provided AD and educated on each section to complete. Pt reports she will consider completing an advanced directive. Spoke with Primary RN Juaquin and discussed case. Palliative Care will remain available
[2022-10-16 14:28] VITALS: BP 137/70
--- NOTE | 2022-10-16 15:45 | NUR ---
ADMISSION SUMMARY. PT ARRIVED FROM ER VIA W/C. CONNECTED TO LOW INTERMITTENT SUCTION AND IS DRAINING CAMPBELL LIQUID. PT ORIENTED TO ROOM WITH CALL LIGHT IN REACH. PATIENT REPORTS IMPROVED ABDOMINAL PAIN FROM ER. REPORTS MILD NAUSEA WITH NO VOMITING. PT IS A/O X4 AND PLEASANT WITH STAFF.
--- NOTE | 2022-10-16 16:02 | NUR ---
SHIFT SUMMARY PT COOPERATIVE. HR SR 70S-80S. 02 ABOVE 91% ON 2L 02. PT AMBULATE TO BATHROOM WITH USE OF WALKER. PT STATES DIFFICULTY WITH PASSING GAS. MEDICATED PER EMR. ORAL FLUID AND NUTRITION INTAKE ADEQUATE.
--- NOTE | 2022-10-16 18:14 | NUR ---
SHIFT SUMMARY. PT ARRIVED FROM ER PRESENTING W/ABDOMINAL PAIN. PT WAS HYPERTENSIVE IN THE ER AND TAKES HTN MEDS AT HOME. DX W/BOWEL OBSTRUCTION. PT CONNECTED TO NG TUBE AT LOW INTERMITTENT SUCTION. PT TOLERATING THIS WELL. PT HAS IV IN RIGHT AC WITH LACTATED RINGERS RUNNING. ABDOMINAL PAIN IS MILD AT THIS TIME AND HAS OCCASIONAL NAUSEA W/O VOMITING. PT RESTING PEACEFULLY.
[2022-10-16 20:05] VITALS: BP 149/67
[2022-10-16 21:03] VITALS: BP 143/87
--- NOTE | 2022-10-16 21:10 | NUR ---
PT C/O FEELING CLAMMY.VERB CONCERNED ABOUT BLOOD SUGAR. CBG 173.I CALLED TELE AND WAS REPORTED THAT MILD ST ELEVATION NOTED.I SPOKE WITH DR CONWAY AND EKG ORDERED.PT WITH NO C/O CP.BP 143/87,PULSE 79, SATS 95% ON 2L N/C,TEMP 98
--- NOTE | 2022-10-17 02:00 | NUR ---
EKG CHECKED WITH PCU CHARGE ANA.NOTED SOME ST DEPRESSION CHANGES IN LEADS 1 AND 2,V5 AND V6,INVERTED T WAVE.I CALLED DR KAUFFMAN AND DISCUSSED ABOVE.DISCUSSED THAT PT NOT WEARING CPAP. WANTING PT TO RESUME CPAP.NO OTHER ORDERS RECEIVED.I NOTIFIED RT AND I SPOKE WITH PT. PT AGREED TO CPAP.
[2022-10-17 04:59] VITALS: BP 130/56
[2022-10-17 07:03] VITALS: BP 132/57
--- NOTE | 2022-10-17 08:19 | NUR ---
SUMMARY PT RESTING THIS AM.NO C/O CP.NO DISTRESS.
[2022-10-17 10:48] VITALS: BP 92/59
[2022-10-17 11:05] LABS: Bun/Creatinine Ratio 24.4 (12.0-20.0); Calcium, Blood 10.2 mg/dL (8.5-10.1); Creatinine, Blood 1.6 mg/dL (0.40-1.00); Potassium, Blood 3.8 mmol/L (3.5-5.5)
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
--- NOTE | 2022-10-17 11:38 | NUR ---
PT WAS TAKEN OFF O2 BY DR. ROGEL AT 0830 AND PLACED BACK ON O2 AT APPROXIMATELY 0845. PT DESATURATED TO 81% WHEN LAYING DOWN AND AWAKE.
--- NOTE | 2022-10-17 11:48 | NUR ---
SPOKE WITH DR. LILLY REGARDING PLAN FOR DISCHARGE, AT THIS TIME PLAN FOR PT TO REMAIN HOSPITALIZED FOR DIURESIS. DR. LILLY STATED THAT DR. CRAFT FROM CARDIOLOGY WAS CONSULTED. DR. LILLY NOTIFIED OF ELEVATED CO2 OF 38 AND CREATININE OF 1.6, DECREASED GFR OF 33. NO CHANGE IN PATIENT STATUS AT THIS TIME.
[2022-10-17 14:59] VITALS: BP 121/63
--- NOTE | 2022-10-17 18:36 | NUR ---
SHIFT SUMMARY PT IS REMAINING IN THE HOSPITAL FOR DIURESIS. PT HAD A LOW BP TODAY SHE WAS ASYMPTOMATIC, BP IMPROVED THIS AFTERNOON. PT HAS HAD ADEQUATE BUT NOT SIGNIFICAN URINARY OUTPUT DESPITE IV LASIX, PT HAS HAD 300ML OUT AND 1 UNMEASURED VOID. PT'S KIDNEY FUNCTION HAS DECREASED, DISCUSSED WITH DR. ROGEL. WILL MONITOR UNTIL REPORT TO NOC RN.
[2022-10-17 20:42] VITALS: BP 142/67
--- NOTE | 2022-10-18 04:16 | NUR ---
SHIFT SUMMARY A/O X4- IND IN THE ROOM. NO REPORT OF PAIN THROUGHOUT SHIFT. MANAGING 02 LEVEL ABOVE 90% ON 2L NC. SLEPT WELL THROUGHOUT THE NIGHT W/ CPAP ON. NO REPORT OF CHEST PAIN OR SOB. WILL CONTINUE TO MONITOR AND REPORT TO ONCOMING RN.
[2022-10-18 04:40] LABS: Bun/Creatinine Ratio 25.9 (12.0-20.0); Calcium, Blood 9.9 mg/dL (8.5-10.1); Creatinine, Blood 1.74 mg/dL (0.40-1.00); Magnesium, Blood 1.5 mg/dL (1.6-2.4); Potassium, Blood 3.7 mmol/L (3.5-5.5)
[2022-10-18 04:55] VITALS: BP 136/79
[2022-10-18 07:28] VITALS: BP 122/66
--- NOTE | 2022-10-18 10:11 | NUR ---
DR. JOLLY IN ROOM AT APPROXOMATELY 09:45. DISCUSSED PLAN W/ PT REGARDING KIDNEY FUNCTION AND HF. WILL F/U W/ CARDIOLOGY TO DETERMINE PLAN. PROVIDED PT WITH IS AND PROVIDED EDUCATION. OBSERVED PT USING IS.
--- NOTE | 2022-10-18 10:47 | NUR ---
DR. JOLLY REQUESTED THAT THIS RN REACH OUT TO DR. CRAFT REGARDING POSSIBLE ANGIOGRAM. MESSAGE LEFT FOR DR. CRAFT TO CALL REGARDING THIS PATIENT.
--- NOTE | 2022-10-18 12:29 | NUR ---
SPOKE WITH DR. CUEVAS REGARDING CARDIOLOGY NEEDS; PER DR. CUEVAS PT WILL NEED TO HAVE A STRESS TEST TOMORROW. PLAN FOR CARDIOLOGY TO SEE PATIENT WHEN STRESS TEST IS COMPLETE FOR FURTHER EVALUATION. WILL CONTINUE TO MONITOR.
[2022-10-18 14:50] VITALS: BP 118/63
--- NOTE | 2022-10-18 16:10 | NUR ---
SHIFT SUMMARY PT KIDNEY FUNCTION WORSENED SINCE YESTERDAY. PT HAS LOST APPROXIMATELY 20LBS SINCE ADMISSION. VSS, O2 SATURATION HAS BEEN AVERAGING IN THE 90'S. INDEPENDENT IN ROOM. PT ON 1500ML FLUID RESTRICTION, PT IS AWARE OF THIS. SHE HAD C/O BACK PAIN, TYLENOL ADMINISTERED. PT SLEEPING UPON REASSESSMENT, BREATHING IS REGULAR AND NONLABORED. SHE HAD ALSO HAD C/O DRY COUGH, PT EDUCATED ON IS, SHE WAS SEEN UTILIZING IS THROUGHOUT SHIFT. PT IS RESTING COMFORTABLY AND CALL LIGHT IS WITHIN REACH.
[2022-10-18 17:32] VITALS: BP 104/59
[2022-10-18 19:54] VITALS: BP 129/60
[2022-10-19 04:22] VITALS: BP 119/53
[2022-10-19 04:32] LABS: Hematocrit 35.7 % (33.0-51.0); Hemoglobin 11.3 g/dL (11.5-16.0); Mean Corpuscular HGB 29.3 pg (26.0-34.0); Mean Corpuscular HGB Conc 31.7 g/dL (31.5-36.5); Mean Corpuscular Volume 93 fL (80-100); Platelet Count 188 K/mm3 (150-400); RDW Coefficient Variation 14.2 % (11.7-14.2); Red Blood Cell Count 3.86 M/mm3 (3.80-5.20); White Blood Cell Count 5.08 K/mm3 (4.00-11.30)
[2022-10-19 04:58] LABS: Magnesium, Blood 1.7 mg/dL (1.6-2.4)
[2022-10-19 04:59] LABS: Albumin, Blood 3.3 g/dL (3.4-5.0); Bilirubin, Total 0.3 mg/dL (0.1-1.0); Calcium, Blood 9.4 mg/dL (8.5-10.1); Creatinine, Blood 1.86 mg/dL (0.40-1.00); Globulin, Blood 3.2 g/dL (2.2-4.0); Phosphorus, Blood 4.2 mg/dL (2.5-4.9); Potassium, Blood 3.6 mmol/L (3.5-5.5); Total Protein, Blood 6.5 g/dL (6.4-8.2)
[2022-10-19 07:46] VITALS: BP 135/53
--- NOTE | 2022-10-19 08:17 | NUR ---
SUMMARY PT NPO PENDING STRESS TEST.
--- NOTE | 2022-10-19 12:46 | NUR ---
TRANSFER TO MEDICAL FLOOR PATIENT TRANSFERRED UP TO MEDICAL FLOOR ROOM 355, REPORT CALLED TO RN PRIOR TO TRANSFER, DAY RN UPDATED ON CURRENT STATUS OF STRESS TEST IN PROGRESS.
[2022-10-19 16:31] LABS: Bun/Creatinine Ratio 28.5 (12.0-20.0); Calcium, Blood 9.5 mg/dL (8.5-10.1); Creatinine, Blood 1.86 mg/dL (0.40-1.00)
--- NOTE | 2022-10-19 16:50 | NUR ---
SHIFT SUMMARY NO ACUTE CHANGES DURING SHIFT. PT UP FROM SURGICAL FLOOR. PT ON TELE, SR 70'S, ON RA. 1ST PORTION OF STRESS TEST COMPLETED TODAY, 2ND PORTION TO BE COMPLETED TOMORROW. PT INDEPENDENT IN ROOM. NO C/O PAIN. WILL CONTINUE TO MONITOR. CALL LIGHT WITHIN REACH.
[2022-10-19 16:57] VITALS: BP 178/99
[2022-10-19 22:04] VITALS: BP 123/71
[2022-10-20 04:05] VITALS: BP 133/70
[2022-10-20 04:55] LABS: Hematocrit 35.5 % (33.0-51.0); Hemoglobin 11.2 g/dL (11.5-16.0); Mean Corpuscular HGB 29.2 pg (26.0-34.0); Mean Corpuscular HGB Conc 31.5 g/dL (31.5-36.5); Mean Corpuscular Volume 93 fL (80-100); Mean Platelet Volume 9.7 fL (9.1-12.4); Platelet Count 194 K/mm3 (150-400); RDW Coefficient Variation 14.1 % (11.7-14.2); RDW Standard Deviation 47.8 fL (35.1-46.3); Red Blood Cell Count 3.83 M/mm3 (3.80-5.20); White Blood Cell Count 5.87 K/mm3 (4.00-11.30)
--- NOTE | 2022-10-20 05:00 | NUR ---
PREVENTION COORDINATOR SUMMARY VSS. ALERT AND ORIENTED. HOB ELEVATED AND CPAP IN USE AT NIGHT FOR SLEEP APNEA. MED TELE SINUS - SEE DOC FLOW SHEETS/TELE STRIPS FOR DETAILS. NPO SINCE 0000 AND NO CAFFIENE THIS SHIFT FOR STRESS TEST LATER TODAY. SON VISITED LAST NIGHT. FLUID RESTRICTION CONTINUES. CALL LIGHT IN REACH. WILL CONT TO MONITOR
[2022-10-20 05:21] LABS: Bun/Creatinine Ratio 27.4 (12.0-20.0); Calcium, Blood 9.5 mg/dL (8.5-10.1); Creatinine, Blood 1.9 mg/dL (0.40-1.00); Magnesium, Blood 1.9 mg/dL (1.6-2.4); Potassium, Blood 3.5 mmol/L (3.5-5.5)
[2022-10-20 08:15] VITALS: BP 137/34
--- NOTE | 2022-10-20 09:31 | NUR ---
PT ASSESSED BY DR. REED, PT PLACED ON PO LASIX. PT IV ON LEFT WRIST LEAKING, RED AND TENDER. PT IV ON LEFT WRIST DC'D AND NEW IV LEFT AC PLACED BY YULISA CLINE.
--- NOTE | 2022-10-20 14:36 | NUR ---
PT STRESS TEST RESULT AVAILABLE FOR DR. JOLLY. DR. JOLLY CONATCTED ON PLANS FOR DISCHARGE. PT RESULTS REQUIRE TACTICAL INTELLIGENCE OFFICER TO ASSESS AND DETERMINE NEXT PLAN OF CARE. DR. KRAUS CONTACTED AND NOTIFIED OF PT STRESS TEST RESULTS.
[2022-10-20] MEDS ORDERED: ATOR40TA PO (16:04)
[2022-10-20] MEDS ORDERED: BENZ100A PO (16:05)
[2022-10-20] MEDS ORDERED: PANT20 PO (16:05)
[2022-10-20] MEDS ORDERED: FURO40 PO (16:06)
--- NOTE | 2022-10-20 17:25 | NUR ---
DISCHARGE NOTE: PT EDUCATED ON DISCHARGE MEDICATION, FOLLOWING UP WITH PCP AND NEHPROLOGIST IN 1 WEEK. PT IV REMOVED W/O DIFFICULTY AND CATHETER TIP INTACTED. PT DRESSED AND PERSONAL BELONGINGS PACKED INDEPENADNTLY. PT ESCORTED VIA WC TO 2ND FLOOR LOBBY AND SON TRANSPORTED PT HOME.
== END 2022-10-20 17:05 | disposition home or self-care (01) | DRG 280 ==
LOC: ER 17:09 → MEDS 20:38 → SURS 20:38 → PCU 20:38 → SURS 10-15 14:28 → MEDS 10-19 12:40
PROVIDERS: Family Medicine; Hospitalist; Nurse Practitioner Acute Care; Physician Assistant; ADMIT Internal Medicine
DX: I13.0 Hypertensive heart and chronic kidney disease with heart failure and stage 1 through stage 4 chronic kidney disease, or unspecified chronic kidney disease (principal); I50.43 Acute on chronic combined systolic (congestive) and diastolic (congestive) heart failure; I21.A1 Myocardial infarction type 2; J96.01 Acute respiratory failure with hypoxia; Z68.42 Body mass index [BMI] 45.0-49.9, adult; I16.1 Hypertensive emergency; E66.2 Morbid (severe) obesity with alveolar hypoventilation; N17.9 Acute kidney failure, unspecified; Z20.822 Contact with and (suspected) exposure to COVID-19; Z91.199 Patient's noncompliance with other medical treatment and regimen due to unspecified reason; E83.42 Hypomagnesemia; N18.30 Chronic kidney disease, stage 3 unspecified; M10.9 Gout, unspecified; K21.9 Gastro-esophageal reflux disease without esophagitis; E11.22 Type 2 diabetes mellitus with diabetic chronic kidney disease; Z98.51 Tubal ligation status; Z86.73 Personal history of transient ischemic attack (TIA), and cerebral infarction without residual deficits; Z79.4 Long term (current) use of insulin; Z79.02 Long term (current) use of antithrombotics/antiplatelets; Z79.82 Long term (current) use of aspirin; Z79.899 Other long term (current) drug therapy
CPT/HCPCS: 0241U; 36415; 36416; 71046; 78452; 80048; 80053; 82947; 83735; 83880; 84100; 84484; 85025; 85027; 93005; 93010; 93017; 94660; 94761; 94762; 96374; 97112; 97161; 99285-25; A9270; A9500; C8929; C9113; J0706; J1650; J1815; J1940; J2785; Q9957

== ENCOUNTER 2023-05-15 14:29 | Inpatient (IN) | payer MEDICARE ==
[~2023-05-15] VITALS: Ht 165.1 cm; Wt 128.9 kg
[~2023-05-15 14:29] MED LIST changes: +ATOR40TA PO; +FURO40 PO; +PANT20 PO
[2023-05-15 15:50] LABS: BASOPHILS ABSOLUTE AUTO 0.05 K/mm3 (0.00-0.23); BASOPHILS PERCENT AUTO 1 % (0-2); EOSINOPHILS ABSOLUTE AUTO 0.19 K/mm3 (0.00-0.68); EOSINOPHILS PERCENT AUTO 2 % (0-6); Hematocrit 32.1 % (33.0-51.0); Hemoglobin 9.5 g/dL (11.5-16.0); IMMATURE GRAN ABSOLUTE AUTO 0.01 K/mm3 (0.00-0.10); IMMATURE GRAN PERCENT AUTO 0 % (0-1); LYMPHOCYTES ABSOLUTE AUTO 1.66 K/mm3 (0.84-5.20); LYMPHOCYTES PERCENT AUTO 21 % (21-46); MONOCYTES ABSOLUTE AUTO 0.58 K/mm3 (0.16-1.47); MONOCYTES PERCENT AUTO 7 % (4-13); Mean Corpuscular HGB 29.1 pg (26.0-34.0); Mean Corpuscular HGB Conc 29.6 g/dL (31.5-36.5); Mean Corpuscular Volume 99 fL (80-100); Mean Platelet Volume 9.6 fL (9.1-12.4); NEUTROPHILS ABSOLUTE AUTO 5.46 K/mm3 (1.96-9.15); NEUTROPHILS PERCENT AUTO 69 % (41-73); Platelet Count 208 K/mm3 (150-400); RDW Coefficient Variation 13.8 % (11.7-14.2); Red Blood Cell Count 3.26 M/mm3 (3.80-5.20); White Blood Cell Count 7.95 K/mm3 (4.00-11.30)
[2023-05-15 16:46] LABS: Albumin/Globulin Ratio 0.6 (0.8-1.8); Bilirubin, Total 0.4 mg/dL (0.1-1.0); Bun/Creatinine Ratio 27.5 (12.0-20.0); Calcium, Blood 9.6 mg/dL (8.5-10.1); Creatinine, Blood 1.31 mg/dL (0.40-1.00); Globulin, Blood 4.8 g/dL (2.2-4.0); Potassium, Blood 4.6 mmol/L (3.5-5.5); Total Protein, Blood 7.8 g/dL (6.4-8.2)
[2023-05-15 17:06] LABS: Influenza A, PCR NEGATIVE (NEGATIVE); Influenza B, PCR NEGATIVE (NEGATIVE); Resp Syncytial Virus, PCR NEGATIVE (NEGATIVE); SARS-Cov-2 (COVID-19) PCR, MMC NEGATIVE (NEGATIVE)
[2023-05-15] MEDS ORDERED: ROPINIROLE HCL0.5 MG PO (20:07)
[2023-05-15 20:54] VITALS: BP 181/96
--- NOTE | 2023-05-15 22:35 | NUR ---
HAVE BEEN TRYING TO CONTACT PROVIDER REGARDING CRITICAL LAB RECIEVED AT APPROX. 2150, UNABLE TO COMNTACT PROVIDER AFTER SEVERAL ATTEMPTS, CHARGE NURSE NOTIFIED.
[2023-05-15 23:25] VITALS: BP 159/92
[2023-05-16 03:44] VITALS: BP 164/83
--- NOTE | 2023-05-16 04:41 | NUR ---
SHIFT SUMMARY PATIENT IS ALERT AND ORIENTED TO PERSON, PLACE, TIME AND SITUATION WITH FORGETFULLNESS. DAUGHTER IS AT BEDSIDE. PATIENT IS A SBA WITH FWW TO THE BATHROOM.
[2023-05-16 05:45] LABS: Bun/Creatinine Ratio 24.3 (12.0-20.0); Calcium, Blood 9.3 mg/dL (8.5-10.1); Creatinine, Blood 1.44 mg/dL (0.40-1.00); Potassium, Blood 4.1 mmol/L (3.5-5.5)
[2023-05-16 07:46] VITALS: BP 146/72
[2023-05-16 12:16] VITALS: BP 155/73
[2023-05-16 17:01] VITALS: BP 144/82
--- NOTE | 2023-05-16 18:00 | NUR ---
SHIFT SUMMARY PT RESTING QUIETLY AT START OF SHIFT. PT'S DAUGHTER ON BED IN . PT ADMITTED FOR DIFFICULTY BREATHING, RECEIVING LASIX. HX HF, HTN,CVA, CKD 3, AND DM. PT IS MORBIDLY OBESE. NORMALLY ON 4L O2 AT HOME, BUT ONLY NEEDING 2L O2 HERE WITH BIOX >95%. LUNGS T/O WITH FINE CRACKLES. TELE MX REPORTED SLIGHT ST ELEVATION AFTER START OF SHIFT. DR CONWAY IN TO SEE PT AND DISCUSS PLAN OF CARE; UPDATED ON TELE REPORT. ECHO LATER DONE IN . TELE MX SOON CALLED AGAIN REPORTING ST ELEVATION SLIGHTLY INCREASED. VS DONE AND DAUGHTER REPORTING PT C/O SOME TINGLING DOWN L ARM. DR CONWAY NOTIFIED AGAIN. NEW ORDERS PLACED. UPDATED ON EKG RESULTS AND TROPONIN LAB. NO FURTHER ORDERS AT THIS TIME. PT AND DAUGHTER BOTH LATER REPORTED CHEST PRESSURE AND TINGLING NOT NEW. PT UP TO BSC INDEPENDENTLY. STRICT I&O'S ORDERED WITH DAILY WT. STOOL SOFTNER ORDERED PER PT REQUEST. NO FURTHER C/O TO PRESENT. RESTING QUIETLY AT THIS TIME. CALL LT IN REACH. DAUGHTER IN AT BS.
[2023-05-16 19:33] VITALS: BP 145/79
[2023-05-17 03:28] VITALS: BP 131/60
--- NOTE | 2023-05-17 04:04 | NUR ---
SHIFT SUMMARY PATIENT NOT TOLERATING CPAP-HAVING DIFFICULTY WITH IT ON HER FACE PER PATIENT AND DAUGHTER SHE HAS ALWAYS HAD ISSUES WITH HAVING THINGS ON HER FACE. PATIENT OPTED TO TAKE OFF CPAP AND USE 2 L'S OF O2 VIA NASAL CANNULA T/O NIGHT-PATIENT SATS >93%. PATIENT C/O LEG AND FEET CRAMPS AT BEGINNING OF SHIFT HOSPITALIST ELIF CALLED-ORDERED HOME MED TID STARTING 05/17/23-SEE ORDERS/EMAR. PATIENT APPEARED TO SLEEP WELL T/O NIGHT WITH EQUAL AND UNLABORED RESPIRATIONS. PATIENT IS USING BEDSIDE COMMODE INDEPENDENTLY IN ROOM. BED IS LOCKED IN THE LOWEST POSITION WITH CALL LIGHT IN REACH. NO S/S OF DISTRESS NOTED AT THIS TIME.
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
[2023-05-17 05:10] LABS: BASOPHILS ABSOLUTE AUTO 0.06 K/mm3 (0.00-0.23); BASOPHILS PERCENT AUTO 1 % (0-2); EOSINOPHILS PERCENT AUTO 4 % (0-6); Hemoglobin 9.6 g/dL (11.5-16.0); IMMATURE GRAN ABSOLUTE AUTO 0.02 K/mm3 (0.00-0.10); IMMATURE GRAN PERCENT AUTO 0 % (0-1); LYMPHOCYTES ABSOLUTE AUTO 2.01 K/mm3 (0.84-5.20); LYMPHOCYTES PERCENT AUTO 28 % (21-46); MONOCYTES ABSOLUTE AUTO 0.75 K/mm3 (0.16-1.47); MONOCYTES PERCENT AUTO 11 % (4-13); Mean Corpuscular HGB 28.9 pg (26.0-34.0); Mean Corpuscular Volume 96 fL (80-100); Mean Platelet Volume 9.9 fL (9.1-12.4); NEUTROPHILS ABSOLUTE AUTO 3.99 K/mm3 (1.96-9.15); NEUTROPHILS PERCENT AUTO 56 % (41-73); Platelet Count 191 K/mm3 (150-400); RDW Coefficient Variation 13.6 % (11.7-14.2); RDW Standard Deviation 48.5 fL (35.1-46.3); Red Blood Cell Count 3.32 M/mm3 (3.80-5.20); White Blood Cell Count 7.13 K/mm3 (4.00-11.30)
[2023-05-17 05:30] LABS: Albumin, Blood 3.2 g/dL (3.4-5.0); Anion Gap 2 mmol/L (6-16); Blood Urea Nitrogen 41 mg/dL (8-24); Bun/Creatinine Ratio 27.2 (12.0-20.0); CO2, Blood 40 mmol/L (21-32); Calcium, Blood 9.5 mg/dL (8.5-10.1); Chloride, Blood 102 mmol/L (98-108); Creatinine, Blood 1.51 mg/dL (0.40-1.00); Glomerular Filtration Rate 36 (60-); Glucose, Blood 65 mg/dL (70-99); Magnesium, Blood 2.1 mg/dL (1.6-2.4); Phosphorus, Blood 3.8 mg/dL (2.5-4.9); Potassium, Blood 3.8 mmol/L (3.5-5.5); Sodium, Blood 144 mmol/L (136-145)
[2023-05-17 07:32] VITALS: BP 148/69
[2023-05-17] MEDS ORDERED: JARDIANCE10 MG PO (12:29)
[2023-05-17] MEDS ORDERED: ROPINIROLE HCL0.5 MG PO (12:29)
[2023-05-17 15:06] VITALS: BP 150/79
--- NOTE | 2023-05-17 17:24 | NUR ---
PATIENT DISCHARGED TO HOME ACCOMPANIED BY HER GRANDDAUGHTER. IV SALINE LOCK AND TELEMETRY REMOVED WITHOUT INCIDENT. VERBALIZED UNDERSTANDING OF D/C INSTRUCTIONS. OFF UNIT VIA W/C AT 1715. NO PERSONAL BELONGINGS LEFT BEHIND IN ROOM.
== END 2023-05-17 17:16 | disposition home or self-care (01) | DRG 291 ==
LOC: ER 14:29 → MEDS 19:45 → ENPENDDIS 05-17 11:41 → MEDS 05-17 17:16
PROVIDERS: Emergency Medicine; Nurse Practitioner Acute Care; Student in an Organized Health Care Education/Training Program; ADMIT Internal Medicine
PROC: 5A09357 Assistance with Respiratory Ventilation, Less than 24 Consecutive Hours, Continuous Positive Airway Pressure (ICD-10-PCS; principal; 2023-05-15)
DX: I13.0 Hypertensive heart and chronic kidney disease with heart failure and stage 1 through stage 4 chronic kidney disease, or unspecified chronic kidney disease (principal); I50.43 Acute on chronic combined systolic (congestive) and diastolic (congestive) heart failure; J96.01 Acute respiratory failure with hypoxia; N17.9 Acute kidney failure, unspecified; I24.89 Other forms of acute ischemic heart disease; Z68.42 Body mass index [BMI] 45.0-49.9, adult; G47.33 Obstructive sleep apnea (adult) (pediatric); E66.01 Morbid (severe) obesity due to excess calories; R77.8 Other specified abnormalities of plasma proteins; M10.9 Gout, unspecified; K21.9 Gastro-esophageal reflux disease without esophagitis; I44.7 Left bundle-branch block, unspecified; E11.22 Type 2 diabetes mellitus with diabetic chronic kidney disease; I25.10 Atherosclerotic heart disease of native coronary artery without angina pectoris; D63.1 Anemia in chronic kidney disease; N18.30 Chronic kidney disease, stage 3 unspecified; Z79.02 Long term (current) use of antithrombotics/antiplatelets; Z79.4 Long term (current) use of insulin; Z79.899 Other long term (current) drug therapy; Z79.82 Long term (current) use of aspirin; Z99.81 Dependence on supplemental oxygen; Z86.73 Personal history of transient ischemic attack (TIA), and cerebral infarction without residual deficits; Z98.51 Tubal ligation status; Z11.52 Encounter for screening for COVID-19
CPT/HCPCS: 0241U; 36415; 71046; 80048; 80053; 80069; 82947; 83735; 83880; 84484; 85025; 93005; 93010; 94660; 94761; 94762; 96374; 99285-25; A9270; C8929; C9113; J1644; J1815; J1940; Q9957

== ENCOUNTER 2023-09-03 09:59 | Emergency (ER) | payer MEDICARE ==
[~2023-09-03] VITALS: Ht 167.6 cm; Wt 131.1 kg
[~2023-09-03 09:59] MED LIST changes: +JARDIANCE10 MG PO; +POTCHL20ER PO; +Protonix40 MG PO; +ROPINIROLE HCL0.5 MG PO
[2023-09-03 10:39] LABS: BASOPHILS ABSOLUTE AUTO 0.03 K/mm3 (0.00-0.23); BASOPHILS PERCENT AUTO 0 % (0-2); EOSINOPHILS PERCENT AUTO 1 % (0-6); Hematocrit 25.2 % (33.0-51.0); Hemoglobin 7.5 g/dL (11.5-16.0); IMMATURE GRAN ABSOLUTE AUTO 0.06 K/mm3 (0.00-0.10); IMMATURE GRAN PERCENT AUTO 1 % (0-1); LYMPHOCYTES ABSOLUTE AUTO 1.28 K/mm3 (0.84-5.20); LYMPHOCYTES PERCENT AUTO 11 % (21-46); MONOCYTES ABSOLUTE AUTO 1.02 K/mm3 (0.16-1.47); MONOCYTES PERCENT AUTO 8 % (4-13); Mean Corpuscular HGB 28.8 pg (26.0-34.0); Mean Corpuscular HGB Conc 29.8 g/dL (31.5-36.5); Mean Corpuscular Volume 97 fL (80-100); Mean Platelet Volume 9.8 fL (9.1-12.4); NEUTROPHILS PERCENT AUTO 80 % (41-73); Platelet Count 199 K/mm3 (150-400); RDW Coefficient Variation 15.5 % (11.7-14.2); RDW Standard Deviation 53.9 fL (35.1-46.3); White Blood Cell Count 12.09 K/mm3 (4.00-11.30)
[2023-09-03 10:58] LABS: Albumin/Globulin Ratio 0.8 (0.8-1.8); Bilirubin, Total 0.6 mg/dL (0.1-1.0); Bun/Creatinine Ratio 27.9 (12.0-20.0); Calcium, Blood 9.6 mg/dL (8.5-10.1); Creatinine, Blood 1.9 mg/dL (0.40-1.00); Globulin, Blood 3.7 g/dL (2.2-4.0); Potassium, Blood 4.9 mmol/L (3.5-5.5); Total Protein, Blood 6.7 g/dL (6.4-8.2)
[2023-09-03 11:29] LABS: Base Excess Venous 10.8 mmol/L; Bicarbonate Venous 33.4 mmol/L (24.0-30.0); PCO2 Venous 62.7 mmHg (38-42); pH Blood Venous 7.37 (7.34-7.37)
[2023-09-03 11:42] LABS: IMMATURE RETIC FRACTION 23.9 % (2.3-16.0); RETICULOCYTE ABSOLUTE 0.0788 M/mm3 (0.0200-0.1100); RETICULOCYTE COUNT PERCENT 3.02 % (0.50-2.50)
[2023-09-03 12:09] LABS: Percent Saturation 4.8 % (15.0-50.0)
[2023-09-03] MEDS ORDERED: Ferrous Gluconate 325 MG Tablet PO ONE (12:50)
[2023-09-03 13:00] VITALS: BP 119/58
[2023-09-03] MEDS ORDERED: FERROUS GLUCON324 M2 PO (13:04)
== END 2023-09-03 13:20 | disposition home or self-care (01) ==
LOC: ER 09:59
PROVIDERS: Emergency Medicine; Physician Assistant
DX: D50.9 Iron deficiency anemia, unspecified (principal); J96.12 Chronic respiratory failure with hypercapnia; I13.0 Hypertensive heart and chronic kidney disease with heart failure and stage 1 through stage 4 chronic kidney disease, or unspecified chronic kidney disease; N18.9 Chronic kidney disease, unspecified; I50.32 Chronic diastolic (congestive) heart failure; E66.01 Morbid (severe) obesity due to excess calories; G47.33 Obstructive sleep apnea (adult) (pediatric); M10.9 Gout, unspecified; K21.9 Gastro-esophageal reflux disease without esophagitis; D63.1 Anemia in chronic kidney disease; Z79.899 Other long term (current) drug therapy
CPT/HCPCS: 71045; 80053; 82728; 82803; 83540; 83550; 83690; 85025; 85045; 86850; 86900; 86901; A9270

== ENCOUNTER 2023-11-25 15:12 | Observation (INO) | payer MEDICARE ==
[~2023-11-25] VITALS: Ht 157.5 cm; Wt 99.8 kg
[~2023-11-25 15:12] MED LIST changes: +Amiodarone HCl200 MG PO; -CARV6.25 PO; +Carvedilol12.5 MG PO; +ELIQUIS2.5 MG PO; +FERROUS GLUCON324 M2 PO; +GABA100 PO; +MELA3 PO; +Vitamin B-Comp1 EACH PO
[2023-11-25 17:00] LABS: Calcium, Ionized (POC) 1.05 mmol/L (1.10-1.46); Chloride (POC) 95 mmol/L (98-108); Creatinine (POC) 3.9 mg/dL (0.6-1.0); Glucose (ISTAT POC) 257 mg/dL (70-99); Hemoglobin (POC) 13.3 g/dL (12.0-16.0); Potassium (POC) 4.9 mmol/L (3.5-5.5); Sodium (POC) 134 mmol/L (135-148); Total CO2 (POC) 29 mmol/L (21-32)
[2023-11-25 17:24] LABS: BASOPHILS ABSOLUTE AUTO 0.07 K/mm3 (0.00-0.23); BASOPHILS PERCENT AUTO 1 % (0-2); EOSINOPHILS PERCENT AUTO 7 % (0-6); Hematocrit 31.9 % (33.0-51.0); Hemoglobin 10.1 g/dL (11.5-16.0); IMMATURE GRAN ABSOLUTE AUTO 0.04 K/mm3 (0.00-0.10); IMMATURE GRAN PERCENT AUTO 0 % (0-1); LYMPHOCYTES ABSOLUTE AUTO 2.88 K/mm3 (0.84-5.20); LYMPHOCYTES PERCENT AUTO 31 % (21-46); MONOCYTES ABSOLUTE AUTO 0.61 K/mm3 (0.16-1.47); MONOCYTES PERCENT AUTO 7 % (4-13); Mean Corpuscular HGB 30.1 pg (26.0-34.0); Mean Corpuscular HGB Conc 31.7 g/dL (31.5-36.5); Mean Corpuscular Volume 95 fL (80-100); Mean Platelet Volume 8.9 fL (9.1-12.4); NEUTROPHILS ABSOLUTE AUTO 5.09 K/mm3 (1.96-9.15); NEUTROPHILS PERCENT AUTO 55 % (41-73); Platelet Count 293 K/mm3 (150-400); RDW Coefficient Variation 16.8 % (11.7-14.2); Red Blood Cell Count 3.35 M/mm3 (3.80-5.20); White Blood Cell Count 9.29 K/mm3 (4.00-11.30)
[2023-11-25 17:51] LABS: Albumin, Blood 2.2 g/dL (3.4-5.0); Albumin/Globulin Ratio 0.8 (0.8-1.8); Bilirubin, Total 0.4 mg/dL (0.1-1.0); Bun/Creatinine Ratio 14.6 (12.0-20.0); Calcium, Blood 6.6 mg/dL (8.5-10.1); Creatinine, Blood 2.54 mg/dL (0.40-1.00); Globulin, Blood 2.9 g/dL (2.2-4.0); Potassium, Blood 3.7 mmol/L (3.5-5.5); Total Protein, Blood 5.1 g/dL (6.4-8.2)
[2023-11-25] MEDS ORDERED: CALCIUM ACETAT667 M2 PO (19:05)
[2023-11-25] MEDS ORDERED: HYDROCODONE-AC1 EAC7 PO (19:07)
[2023-11-25] MEDS ORDERED: ONDA4ODT SL (19:08)
[2023-11-25] MEDS ORDERED: PLAVIX75 MG PO (19:12)
[2023-11-25] MEDS ORDERED: SOAANZ20 M3 PO (19:13)
[2023-11-25] MEDS ORDERED: FUROSEMIDE40 MG PO (19:15)
[2023-11-25] MEDS ORDERED: K-TAB ER20 ME1 PO (19:17)
[2023-11-25] MEDS ORDERED: FentaNYL Citrate 50 MCG/ML 2 ML Injection ONE (19:27)
[2023-11-25] MEDS ORDERED: NS 1,000 ML IV ONE (19:27)
[2023-11-25] MEDS ORDERED: Midazolam HCl 1MG / ML 2ML Vial ONE (19:27)
[2023-11-25] MEDS ORDERED: Heparin Sodium 1000 Units/ML 10ML MDV ONE (19:39)
[2023-11-25] MEDS ORDERED: NS 500 ML IV ONE (19:39)
[2023-11-25] MEDS ORDERED: Norco 10-325 T1 EACH PO (19:42)
[2023-11-25] MEDS ORDERED: Calcium Acetat667 MG PO (19:43)
[2023-11-25] MEDS ORDERED: CLOP75 PO (19:47)
[2023-11-25] MEDS ORDERED: Heparin Sodium 10,000 Units/ML 1ML MDV ONE (20:31)
[2023-11-25] MEDS ORDERED: Amiodarone HCl 200 MG Tab PO SCH (21:00)
[2023-11-25] MEDS ORDERED: Gabapentin 100 MG Cap PO SCH (21:00)
[2023-11-25] MEDS ORDERED: Apixaban 5 MG Tab PO SCH (21:00)
[2023-11-25] MEDS ORDERED: Insulin Glargine-Yfgn 100 Unit/mL 3 ML SYR SC SCH (21:00)
[2023-11-25 21:04] VITALS: BP 104/66
[2023-11-25] MEDS ORDERED: HYDROcodone 5-APAP 325 TAB PO PRN (22:50)
[2023-11-25] MEDS ORDERED: Melatonin 3 MG Tab PO PRN (23:15)
[2023-11-26] VITALS (9 sets, daily range): BP systolic 116–158; BP diastolic 54–74
[2023-11-26] MEDS ORDERED: Pantoprazole Sodium 20 MG Tab PO SCH (06:00)
[2023-11-26 06:03] LABS: Hematocrit 31.9 % (33.0-51.0); Hemoglobin 9.7 g/dL (11.5-16.0)
--- NOTE | 2023-11-26 06:17 | NUR ---
NEW ADMIT. CAME FROM OR FOR HD CATH REPLACEMENT. SITE INTACT BUT DRESSING SATURATED, REINFORCED, MANUAL PRESSURE GIVEN FOR 5 MIN, THEN WEIGHT OF 2# SANDBAG PLACED FOR 1/2 HOUR +. AREA OF SWELLING WAS MARKED WITH SKIN MARKER. BLEEDING APPEARED TO STOP AND SWELLING SLIGHTLY IMPROVED. LATER THIS AM, SITE NOTED TO BE SATURATED AGAIN WITH BLOOD NOTED ON NECK. PRESSURE DRESSING CHANGED, AND 2# SANDBAG WT REPLACED. AREA ALSO APPEARS MORE SWOLLEN THIS AM. HOSPITALIST WAS NOTIFIED (Carmela).
[2023-11-26 06:27] LABS: Magnesium, Blood 1.8 mg/dL (1.6-2.4)
[2023-11-26 06:55] LABS: Albumin, Blood 2.6 g/dL (3.4-5.0); Anion Gap 12 mmol/L (3-11); Blood Urea Nitrogen 53 mg/dL (8-24); Bun/Creatinine Ratio 14.3 (12.0-20.0); CO2, Blood 29 mmol/L (21-32); Calcium, Blood 8.7 mg/dL (8.5-10.1); Chloride, Blood 100 mmol/L (98-108); Glomerular Filtration Rate 12 (60-); Glucose, Blood 252 mg/dL (70-99); Phosphorus, Blood 5.5 mg/dL (2.5-4.9); Potassium, Blood 4.8 mmol/L (3.5-5.5); Sodium, Blood 136 mmol/L (136-145)
[2023-11-26] MEDS ORDERED: Anticoagulant Sod Citrate Soln 3 ML SYR INJ PRN (07:50)
[2023-11-26] MEDS ORDERED: Carvedilol 6.25 MG Tab PO SCH (08:00)
[2023-11-26] MEDS ORDERED: Calcium Acetate 667 MG Gel Cap PO SCH (08:30)
[2023-11-26] MEDS ORDERED: Bumetanide 1 MG Tab PO SCH (09:00)
[2023-11-26] MEDS ORDERED: Aspirin 81 MG Chew PO SCH (09:00)
[2023-11-26] MEDS ORDERED: Atorvastatin 40 MG Tab PO SCH (09:00)
[2023-11-26] MEDS ORDERED: Heparin Sodium,Porcine 5,000 UNIT/0.5 ML SDV SC SCH (09:00)
[2023-11-26] MEDS ORDERED: Insulin Glargine-Yfgn 100 Unit/mL 3 ML SYR SC SCH ×2 (09:00→21:00)
[2023-11-26] MEDS ORDERED: Clopidogrel Bisulfate 75 MG Tab PO SCH (09:00)
[2023-11-26] MEDS ORDERED: Sennosides 8.6 MG Tab PO SCH (09:00)
[2023-11-26] MEDS ORDERED: Darbepoetin Alfa In Albumn Sol 40 MCG/0.4 ML SC SCH (16:00)
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
== END 2023-11-26 18:29 | disposition home or self-care (01) ==
LOC: ER 15:12 → MEDS 15:13
PROVIDERS: Internal Medicine Nephrology; Physician Assistant; ADMIT Internal Medicine
DX: T82.41XA Breakdown (mechanical) of vascular dialysis catheter, initial encounter (principal); E11.22 Type 2 diabetes mellitus with diabetic chronic kidney disease; N18.6 End stage renal disease; G47.33 Obstructive sleep apnea (adult) (pediatric); J96.12 Chronic respiratory failure with hypercapnia; I50.20 Unspecified systolic (congestive) heart failure; I48.91 Unspecified atrial fibrillation; Z79.4 Long term (current) use of insulin; Z86.73 Personal history of transient ischemic attack (TIA), and cerebral infarction without residual deficits; Z99.2 Dependence on renal dialysis; Z99.89 Dependence on other enabling machines and devices; Y83.8 Other surgical procedures as the cause of abnormal reaction of the patient, or of later complication, without mention of misadventure at the time of the procedure
CPT/HCPCS: 36415; 36561; 71046; 76937; 80047; 80053; 80069; 82947; 83735; 85014; 85018; 85025; 94660; 94762; 96372; 99152; 99153; 99284; A9270; C1750; C1769; C1894; C9113; G0257; G0378; J0881; J1644; J1815; J2250; J3010; J7030; J7040; Q9967

== ENCOUNTER 2024-01-14 07:12 | Emergency (ER) | payer MEDICARE ==
[~2024-01-14] VITALS: Ht 167.6 cm; Wt 114.3 kg
[~2024-01-14 07:12] MED LIST changes: +CALCIUM ACETAT667 M2 PO; +Calcium Acetat667 MG PO; +FUROSEMIDE40 MG PO; +HYDROCODONE-AC1 EAC7 PO; +K-TAB ER20 ME1 PO; +Norco 10-325 T1 EACH PO; +ONDA4ODT SL; +PLAVIX75 MG PO; +SOAANZ20 M3 PO
[2024-01-14 07:27] VITALS: BP 155/69
--- NOTE | 2024-01-14 11:02 | NUR ---
PT TO ER DIRECTLY FROM OUTPATIENT DIALYSIS DUE TO NON WORKING DIALYSIS CATHETER. PT LYING IN BED WITH DAUGHTER AT BEDSIDE. ON FIRST ATTEMPT TO ASPIRATE THE ARTERIAL (RED) LUMEN THERE WAS RESTRICTION AND MINIMAL FLOW, ALTHOUGH IT FLUSHED WITHOUT ANY DIFFICULTIES. WHEN ATTEMPTING TO ASPIRATE THE VENOUS (BLUE) LUMEN IT ROBERT AND FLUSHED WITHOUT ANY RESISTANCE. COMMUNICATED TO PT AND BEDSIDE RN THAT DIALYSIS CATHETER IS FUNCTIONAL AND NO INTERVENTION IS NECESSARY.
== END 2024-01-14 10:56 | disposition home or self-care (01) ==
LOC: ER 07:12
DX: Z49.01 Encounter for fitting and adjustment of extracorporeal dialysis catheter (principal); I13.2 Hypertensive heart and chronic kidney disease with heart failure and with stage 5 chronic kidney disease, or end stage renal disease; E11.22 Type 2 diabetes mellitus with diabetic chronic kidney disease; I50.20 Unspecified systolic (congestive) heart failure; N18.6 End stage renal disease; G47.33 Obstructive sleep apnea (adult) (pediatric); I48.91 Unspecified atrial fibrillation; Z79.4 Long term (current) use of insulin; Z79.899 Other long term (current) drug therapy; Z99.2 Dependence on renal dialysis
CPT/HCPCS: 99284